=== PATIENT | female | born 1930 | race Caucasian/White ===

== ENCOUNTER → 2017-01-03 | Outpatient (CLI) | payer MEDICARE, BC ==
[~2017-01-03] MED LIST: ABILIFY 10MG TA10 MG PO; ABILIFY PO; ALPRAZOLAM1 MG PO; AMBIEN 5MG TABLE5 MG PO; ARICEPT ODT10 MG PO; BENADRYL25 M2 PO; CENTRUM SILVER1 TA1 PO; CLARITIN 1010 MG/TAB PO; COLACE 100100 MG/CAP PO; EFFEXOR XR75 MG/CAP PO; FLEXERIL5 MG PO; LAXATIVE10 MG RC; LEVOTHYROXIN0.075 MG PO; LEXAPRO 10MG10 MG PO; LIPITOR 10MG10 MG PO; LORATADINE10 MG PO; MULTIPLE VITAMI1 CAP PO; MVI; NAMENDA 10MG TA10 MG PO; NAMENDA XR 28MG PO; NATURAL TEARS OU; PATANOL 5 ML5 ML OU; PEPCID AC 10MG10 MG PO; RAZADYNE ER24 MG PO; RAZADYNE ER8 MG PO; REQUIP 1MG T1 MG/TAB PO; REQUIP0.5 MG PO; SEROQUEL 1100 MG/TAB PO; SEROQUEL50 MG PO; SUDAFED 30M30 MG/TAB PO; SYNTHROID 0.0.025 MG PO; SYNTHROID0.025 MG PO; TEARS NATURALE15 M1 OU; TYLENOL 325MG325 MG PO; VITAMIN B12 PO; XANAX XR1 MG PO; ZYPREXA 5MG5 MG PO; ZYPREXA10 MG PO; [UNRECOGNIZED DRUG - OTHER] IH
[2017-01-03 12:42] LABS: BASO # 0.1 (0.0-0.2); BASO % 1.3 % (0.0-2.0); EOS # 0.2 (0.0-0.7); EOS % 4.7 % (0-4.0); GRAN # 2.4 (1.4-6.5); GRAN % 53.3 % (42.2-75.2); HEMATOCRIT 37.5 % (37.0-47.0); HEMOGLOBIN 12.6 g/dl (12.5-16.0); LYMPH # 1.3 (1.2-3.4); LYMPH % 30.1 % (20.0-51.0); MEAN CELL VOLUME 94 fl (80.0-100.0); MEAN CORPUSCULAR HEMOGLOBIN 32 pg (27.0-31.0); MEAN CORPUSCULAR HGB CONC 34 g/dl (33.0-37.0); MEAN PLATELET VOLUME 9.9 fl (7.4-10.4); MONO # 0.5 (0.1-0.6); MONO % 10.6 % (1.7-9.3); PLATELET COUNT 283 K/mm3 (130-400); REDCELL DISTRIBUTION WIDTH-CV 12.4 % (11.5-14.5); WHITE BLOOD COUNT 4.5 K/mm3 (4.8-10.8)
== END ==
LOC: ZCOL.LAB 10:39
PROVIDERS: Internal Medicine
DX: E03.8 Other specified hypothyroidism (principal); D51.8 Other vitamin B12 deficiency anemias

== ENCOUNTER → 2017-03-13 | Outpatient (CLI) | payer MEDICARE, BC ==
[2017-03-13 15:25] LABS: ADJUSTED CALCIUM 9.8 mg/dL (8.4-10.2); ALBUMIN 3.5 gm/dL (3.5-5.0); BILIRUBIN,TOTAL 0.5 mg/dL (0.0-1.0); CALCIUM 9.4 mg/dL (8.4-10.2); CREATININE, serum 0.8 mg/dL (0.52-1.25); POTASSIUM 4.4 mmol/L (3.4-5.0); TOTAL PROTEIN 5.6 gm/dL (6.4-8.2)
== END ==
LOC: ZCOL.LAB 09:57
PROVIDERS: Internal Medicine
DX: Z02.89 Encounter for other administrative examinations (principal)

== ENCOUNTER → 2017-09-06 | Outpatient (CLI) | payer MEDICARE, BC ==
[2017-09-06 17:25] LABS: COLLECTION METHOD CLEAN CATCH
[2017-09-06 17:40] LABS: PH 6 (5-8); SQUAMOUS EPITHELIAL None Seen /hpf; URINE APPEARANCE Clear; URINE BACTERIA None Seen /hpf; URINE BILIRUBIN Negative (NEGATIVE); URINE BLOOD 1+ (NEGATIVE); URINE COLOR Yellow; URINE GLUCOSE Negative (NEGATIVE); URINE KETONE Negative (NEGATIVE); URINE LEUKOCYTE ESTERASE Negative (NEGATIVE); URINE PROTEIN(semi-quant) Negative (NEGATIVE); URINE RBC None Seen /hpf; URINE UROBILINOGEN Negative (NEGATIVE); URINE WBC 0-2 /hpf
== END ==
LOC: ZCOL.LAB 17:22
PROVIDERS: Internal Medicine
DX: N39.0 Urinary tract infection, site not specified (principal)

== ENCOUNTER → 2017-10-26 | Outpatient (CLI) | payer MEDICARE, BC, MEDICAID ==
[2017-10-26 17:49] LABS: COLLECTION METHOD CLEAN CATCH
[2017-10-26 17:57] LABS: MUCOUS Present /lpf; PH 5 (5-8); SQUAMOUS EPITHELIAL 0-2 /hpf; URINE APPEARANCE Clear; URINE BACTERIA None Seen /hpf; URINE BILIRUBIN Negative (NEGATIVE); URINE BLOOD 2+ (NEGATIVE); URINE COLOR Yellow; URINE GLUCOSE Negative (NEGATIVE); URINE KETONE Negative (NEGATIVE); URINE LEUKOCYTE ESTERASE Negative (NEGATIVE); URINE PROTEIN(semi-quant) Negative (NEGATIVE); URINE RBC >50 /hpf; URINE UROBILINOGEN Negative (NEGATIVE); URINE WBC 0-2 /hpf
== END ==
LOC: ZCOL.LAB 17:30
PROVIDERS: Internal Medicine
DX: Z87.448 Personal history of other diseases of urinary system (principal)

== ENCOUNTER → 2017-11-23 | Outpatient (CLI) | payer MEDICARE, BC, MEDICAID ==
[2017-11-23 11:12] LABS: COLLECTION METHOD CLEAN CATCH
[2017-11-23 11:31] LABS: PH 6 (5-8); SQUAMOUS EPITHELIAL None Seen /hpf; URINE APPEARANCE Hazy; URINE BACTERIA None Seen /hpf; URINE BILIRUBIN Negative (NEGATIVE); URINE BLOOD 1+ (NEGATIVE); URINE COLOR Yellow; URINE GLUCOSE Negative (NEGATIVE); URINE KETONE Negative (NEGATIVE); URINE LEUKOCYTE ESTERASE 2+ (NEGATIVE); URINE NITRATE Negative (NEGATIVE); URINE PROTEIN(semi-quant) Negative (NEGATIVE); URINE UROBILINOGEN Negative (NEGATIVE)
== END ==
LOC: ZCOL.LAB 11:07
PROVIDERS: Internal Medicine
DX: N39.0 Urinary tract infection, site not specified (principal)

== ENCOUNTER → 2017-12-04 | Outpatient (CLI) | payer MEDICARE, BC, MEDICAID ==
[2017-12-04 16:31] LABS: THYROID STIMULATING HORMONE 3.82 uIU/mL (0.465-4.680)
== END ==
LOC: ZCOL.LAB 16:27
PROVIDERS: Internal Medicine
DX: E03.9 Hypothyroidism, unspecified (principal)

== ENCOUNTER 2017-12-07 09:41 | Emergency (ER) | payer MEDICARE, BC, MEDICAID ==
[~2017-12-07] VITALS: Ht 165.1 cm; Wt 54.5 kg
[2017-12-07 10:31] LABS: HEMATOCRIT 44.6 % (37.0-47.0); HEMOGLOBIN 14.9 g/dl (12.5-16.0); MEAN CELL VOLUME 95 fl (80.0-100.0); MEAN CORPUSCULAR HEMOGLOBIN 32 pg (27.0-31.0); MEAN CORPUSCULAR HGB CONC 33 g/dl (33.0-37.0); MEAN PLATELET VOLUME 9.2 fl (7.4-10.4); PLATELET COUNT 289 K/mm3 (130-400); REDCELL DISTRIBUTION WIDTH-CV 12.5 % (11.5-14.5)
[2017-12-07 10:41] LABS: ALBUMIN 4.4 gm/dL (3.5-5.0); BILIRUBIN,TOTAL 0.8 mg/dL (0.0-1.0); CALCIUM 9.6 mg/dL (8.4-10.2); CREATININE, serum 1.05 mg/dL (0.52-1.25); POTASSIUM 4.5 mmol/L (3.4-5.0)
[2017-12-07 10:58] LABS: PROLACTIN 21.2 ng/mL (3.0-18.6)
[2017-12-07 11:18] LABS: BAND 37 % (0-10); LYMPHOCYTE 4 % (20.0-51.0); NEUTROPHILS 55 % (42.0-75.2); PLATELET ESTIMATE NORMAL (NORMAL)
[2017-12-07 11:19] LABS: TOXIC GRANULATION PRESENT
[2017-12-07 11:47] LABS: COLLECTION METHOD CLEAN CATCH
[2017-12-07 11:55] LABS: MUCOUS Present /lpf; PH 5 (5-8); SQUAMOUS EPITHELIAL 0-2 /hpf; URINE APPEARANCE Hazy; URINE BACTERIA None Seen /hpf; URINE BILIRUBIN Negative (NEGATIVE); URINE BLOOD 3+ (NEGATIVE); URINE COLOR Amber; URINE GLUCOSE Negative (NEGATIVE); URINE KETONE 1+ (NEGATIVE); URINE LEUKOCYTE ESTERASE Negative (NEGATIVE); URINE NITRATE Negative (NEGATIVE); URINE PROTEIN(semi-quant) 2+ (NEGATIVE); URINE RBC >50 /hpf; URINE UROBILINOGEN Negative (NEGATIVE)
[2017-12-07] MEDS ORDERED: BACTRIM DS 8001 TAB PO (12:17)
[2017-12-07 15:30] VITALS: BP 128/83; PULSE 96; TEMP 98.2
[2017-12-08] MEDS ORDERED: DESYREL 50MG50 MG PO (11:15)
[2017-12-08] MEDS ORDERED: NAMENDA 10MG TA10 MG PO (11:59)
== END 2017-12-07 15:15 | disposition home or self-care (01) ==
LOC: COL.ER 09:41
PROVIDERS: Emergency Medicine
DX: N39.0 Urinary tract infection, site not specified (principal); R41.0 Disorientation, unspecified; G30.9 Alzheimer's disease, unspecified; F02.80 Dementia in other diseases classified elsewhere, unspecified severity, without behavioral disturbance, psychotic disturbance, mood disturbance, and anxiety; Z85.51 Personal history of malignant neoplasm of bladder; E03.9 Hypothyroidism, unspecified; F41.9 Anxiety disorder, unspecified; H57.02 Anisocoria; D32.9 Benign neoplasm of meninges, unspecified
CPT/HCPCS: J0696; J1630

== ENCOUNTER 2017-12-08 09:48 | Emergency (ER) | payer MEDICARE, BC, MEDICAID ==
[~2017-12-08 09:48] MED LIST changes: +BACTRIM DS 8001 TAB PO
[2017-12-08 09:49] VITALS: TEMP 98.4
[2017-12-08] MEDS ORDERED: DESYREL 50MG50 MG PO (11:15)
[2017-12-08 11:18] LABS: BASO % 0.1 % (0.0-2.0); GRAN # 7.3 (1.4-6.5); GRAN % 76.8 % (42.2-75.2); HEMATOCRIT 40.8 % (37.0-47.0); HEMOGLOBIN 13.8 g/dl (12.5-16.0); LYMPH # 1.1 (1.2-3.4); LYMPH % 11.7 % (20.0-51.0); MEAN CELL VOLUME 94 fl (80.0-100.0); MEAN CORPUSCULAR HEMOGLOBIN 32 pg (27.0-31.0); MEAN CORPUSCULAR HGB CONC 34 g/dl (33.0-37.0); MEAN PLATELET VOLUME 9.3 fl (7.4-10.4); MONO # 1.1 (0.1-0.6); MONO % 11.2 % (1.7-9.3); PLATELET COUNT 272 K/mm3 (130-400); RED BLOOD COUNT 4.32 M/mm3 (4.10-5.30); REDCELL DISTRIBUTION WIDTH-CV 12.7 % (11.5-14.5)
[2017-12-08 11:30] LABS: ALBUMIN 4.6 gm/dL (3.5-5.0); BILIRUBIN,TOTAL 0.4 mg/dL (0.0-1.0); CALCIUM 9.9 mg/dL (8.4-10.2); CREATININE, serum 1.14 mg/dL (0.52-1.25); TOTAL PROTEIN 7.1 gm/dL (6.4-8.2)
[2017-12-08] MEDS ORDERED: NAMENDA 10MG TA10 MG PO (11:59)
[2017-12-08 14:06] VITALS: BP 136/95; PULSE 81
== END 2017-12-08 14:08 | disposition home or self-care (01) ==
LOC: COL.ER 09:48
PROVIDERS: Emergency Medicine
DX: N39.0 Urinary tract infection, site not specified (principal); C67.9 Malignant neoplasm of bladder, unspecified; R53.81 Other malaise; F31.9 Bipolar disorder, unspecified; F03.90 Unspecified dementia, unspecified severity, without behavioral disturbance, psychotic disturbance, mood disturbance, and anxiety; E03.9 Hypothyroidism, unspecified